=== PATIENT | female | born 2000 | race Caucasian/White ===

== ENCOUNTER 2023-02-01 06:47 | Day surgery (SDC) | payer OTHER ==
[~2023-02-01] VITALS: Ht 162.6 cm; Wt 64.0 kg
[2023-02-01] MEDS ORDERED: LIDOCAINE/EPI MPF 1%1:200000 30 ML VIAL INJ ONE (07:26)
[2023-02-01] MEDS ORDERED: ceFAZolin 2,000 MG VIAL ONE (07:28)
[2023-02-01] MEDS ORDERED: SEVOFLURANE 250 ML BTL INH ONE (07:33)
[2023-02-01] MEDS ORDERED: MIDAZOLAM 2 MG/2 ML VIAL ONE (07:37)
[2023-02-01] MEDS ORDERED: fentaNYL citrate 0.05 MG/ML VIAL ONE (07:37)
[2023-02-01] MEDS ORDERED: PROPOFOL 200 MG/20 ML VIAL IV ONE (08:00)
[2023-02-01] MEDS ORDERED: METOCLOPRAMIDE 10 MG/2 ML INJ VIAL ONE (08:00)
[2023-02-01] MEDS ORDERED: ONDANSETRON 4 MG/2 ML VIAL ONE (08:00)
[2023-02-01] MEDS ORDERED: DEXAMETHASONE 4 MG/ML VIAL ONE (08:01)
[2023-02-01] MEDS ORDERED: LIDOCAINE MPF 2% 100 MG/5 ML VIAL INJ ONE (08:18)
[2023-02-01] MEDS ORDERED: KETOROLAC 30 MG/ML VIAL ONE (08:18)
[2023-02-01] MEDS ORDERED: KETOROLAC 30 MG/ML VIAL IVP ONE (09:05)
[2023-02-01] MEDS ORDERED: ONDANSETRON 4 MG/5 ML ORASYR GT PRN (09:05)
[2023-02-01] MEDS ORDERED: HYDROmorphone 1 MG/ML AMP IVP PRN (09:05)
== END 2023-02-01 11:02 | disposition home or self-care (01) ==
LOC: MMU 06:47 → MDS 06:47
PROVIDERS: ATTEND Obstetrics & Gynecology
DX: N90.60 Unspecified hypertrophy of vulva (principal); Z98.890 Other specified postprocedural states; Z79.899 Other long term (current) drug therapy
CPT/HCPCS: 56620; J1100; J1885; J2001; J2250; J2405; J2704; J2765; J3010; J7120; 88305; J0690; J7060

== ENCOUNTER 2023-02-07 14:52 | Inpatient (IN) | payer OTHER ==
[~2023-02-07] VITALS: Ht 162.6 cm; Wt 61.2 kg
[2023-02-07 15:46] VITALS: BP 109/73; PULSE 84; RESP 20; TEMP 98; O2SAT 98
[2023-02-07 16:25] LABS: BASOPHILS # (AUTO) 0.1 K/uL (0.00-0.22); BASOPHILS % (AUTO) 1.5 % (0.0-2.0); EOSINOPHILS # (AUTO) 0.1 K/uL (0-0.4); EOSINOPHILS % (AUTO) 1.7 % (0.0-4.0); HEMATOCRIT 44.3 % (36-48); HEMOGLOBIN 14.9 g/dL (12.0-16.0); LYMPHOCYTES # (AUTO) 1.6 K/uL (2.5-16.5); LYMPHOCYTES % (AUTO) 26.7 % (20.5-51.1); MEAN CORPUSCULAR HEMOGLOBIN 30 pg (27-31); MEAN CORPUSCULAR HGB CONC 34 g/dL (33-37); MEAN CORPUSCULAR VOLUME 88.4 fL (80-94); MONOCYTES # (AUTO) 0.5 K/uL (0.8-1.0); MONOCYTES % (AUTO) 7.8 % (1.7-9.3); NEUTROPHILS # (AUTO) 3.7 K/uL (1.8-7.7); NEUTROPHILS % (AUTO) 62.3 % (42.2-75.2); PLATELET COUNT (AUTO) 274 K/uL (140-450); RED BLOOD CELL COUNT(AUTO) 5.01 MIL/uL (4.20-5.40); RED CELL DISTRIBUTION WIDTH 13.2 % (11.6-13.7); WHITE BLOOD COUNT (AUTO) 5.9 K/uL (4.5-11.0)
[2023-02-07 16:44] LABS: ALBUMIN 4.2 g/dL (3.4-5.0); ANION GAP 13.4 (8-16); CARBON DIOXIDE 25.7 mmol/L (21-32); CREATININE 0.8 mg/dL (0.6-1.3); POTASSIUM 4.1 mmol/L (3.5-5.1); TOTAL BILIRUBIN 0.4 mg/dL (0.0-1.0)
[2023-02-07] MEDS ORDERED: cefTRIAXone 1,000 MG VIAL ONE (17:39)
[2023-02-07 17:50] LABS: APPEARANCE,URINE CLEAR (CLEAR); BILIRUBIN,URINE NEGATIVE (NEGATIVE); BLOOD, URINE NEGATIVE (NEGATIVE); COLOR,URINE YELLOW (YELLOW); LEUKOCYTE ESTERASE ,URINE NEGATIVE (NEGATIVE); NITRITE, URINE NEGATIVE (NEGATIVE); UGLUCOSE NEGATIVE (NEGATIVE)
[2023-02-07] MEDS ORDERED: ONDANSETRON 4 MG/2 ML VIAL IVP PRN (18:25)
[2023-02-07] MEDS ORDERED: HYDROcodone/APAP 5/325 MG 1 TAB TAB PO PRN (18:25)
[2023-02-07] MEDS ORDERED: VANCOMYCIN PER PHARMACY MC PRN (18:25)
[2023-02-07] MEDS ORDERED: MORPHINE SULFATE 4 MG/ML SYR IVP PRN (18:25)
[2023-02-07] MEDS ORDERED: POTASSIUM CHLORIDE 10 MEQ TABER PO PRN (18:25)
[2023-02-07] MEDS ORDERED: ACETAMINOPHEN 325 MG TAB PO PRN (18:25)
[2023-02-07] MEDS ORDERED: MAGNESIUM OXIDE 400 MG TAB PO PRN (18:25)
--- NOTE | 2023-02-07 19:41 | NUR ---
AMBULAOTES WITH STEADY GAIT. AWARE OF NPO STATUS WITH ADMISSION TO HOSPITAL
[2023-02-07] MEDS: DEXT 5% /NACL 0.9% 1,000 ML IV SCH (20:00)
[2023-02-07] MEDS ORDERED: VANCOMYCIN 1,000 MG in DEXTROSE 5% 250 ML IV SCH (20:00)
--- NOTE | 2023-02-07 20:36 | NUR ---
Report called to [facility] for transfer of care.
[2023-02-07 21:30] VITALS: PULSE 68; RESP 18; O2SAT 100
--- NOTE | 2023-02-07 21:30 | NUR ---
PT WAS ADMITTED TO [facility] DEPART FROM ER WITH DIAGNOSIS OF INFECTED LABIA. PT IS AOX4, AMBULATORY, ABLE TO VERBALIZE NEEDS AND ABLE TO FOLLOW COMMANDS. PT IS ON ROOM AIR AND ON NPO DIET. PT HAS IV ON LEFT AC GAUGE 22 RUNNING WITH D5NS AT 80ML/HR. PT HAS SURGICAL WOUND ON LABIA. PT WAS ORIENTED TO ROOM/HOSPITAL, BED BUTTON AND CALL LIGHT. ALL SAFETY MEASURES IMPLEMENTED. BED IN LOW POSITION, BED WHEELS ON LOCK AND CALL LIGHT WITHIN REACH.
[2023-02-07] MEDS ORDERED: VANCOMYCIN 1,000 MG VIAL ONE (21:59)
--- NOTE | 2023-02-07 22:03 | NUR ---
ALL SCHEDULED AND PRESCRIBED MEDICATION WAS GIVEN TO PT PER MD ORDER. ALL SAFETY MEASURES IMPLEMENTED. BED IN LOW POSITION, BED WHEELS ON LOCK AND CALL LIGHT WITHIN REACH.
--- NOTE | 2023-02-08 | NUR ---
PT IS ON SLEEP. CHEST RISE AND FALL SYMMETRICALLY NOTED. RESPIRATION IS EVEN AND UNLABORED. ALL SAFETY MEASURES IMPLEMENTED. BED IN LOW POSITION, BED WHEELS ON LOCK AND CALL LIGHT WITHIN REACH.
--- NOTE | 2023-02-08 02:00 | NUR ---
CHECKED THE PT, STILL ON SLEEP. CHEST RISE AND FALL SYMMETRICALLY NOTED. RESPIRATION IS EVEN AND UNLABORED. ALL SAFETY MEASURES IMPLEMENTED. BED IN LOW POSITION, BED WHEELS ON LOCK AND CALL LIGHT WITHIN REACH.
[2023-02-08 04:00] VITALS: BP 95/58; PULSE 62; RESP 18; TEMP 97.5; O2SAT 98
[2023-02-08] MEDS: DEXT 5% /NACL 0.9% 1,000 ML IV SCH ×2 (06:55→20:16)
[2023-02-08 06:56] LABS: BASOPHILS # (AUTO) 0.1 K/uL (0.00-0.22); BASOPHILS % (AUTO) 1.8 % (0.0-2.0); EOSINOPHILS # (AUTO) 0.2 K/uL (0-0.4); EOSINOPHILS % (AUTO) 2.4 % (0.0-4.0); HEMATOCRIT 43.2 % (36-48); HEMOGLOBIN 14.6 g/dL (12.0-16.0); LYMPHOCYTES # (AUTO) 1.6 K/uL (2.5-16.5); LYMPHOCYTES % (AUTO) 26.4 % (20.5-51.1); MEAN CORPUSCULAR HEMOGLOBIN 30 pg (27-31); MEAN CORPUSCULAR HGB CONC 34 g/dL (33-37); MEAN CORPUSCULAR VOLUME 88.3 fL (80-94); MONOCYTES # (AUTO) 0.6 K/uL (0.8-1.0); MONOCYTES % (AUTO) 9.7 % (1.7-9.3); NEUTROPHILS # (AUTO) 3.7 K/uL (1.8-7.7); NEUTROPHILS % (AUTO) 59.7 % (42.2-75.2); PLATELET COUNT (AUTO) 265 K/uL (140-450); RED CELL DISTRIBUTION WIDTH 13.1 % (11.6-13.7); WHITE BLOOD COUNT (AUTO) 6.1 K/uL (4.5-11.0)
[2023-02-08 06:58] LABS: ANION GAP 10.4 (8-16); CARBON DIOXIDE 28.8 mmol/L (21-32); CREATININE 0.8 mg/dL (0.6-1.3); POTASSIUM 4.2 mmol/L (3.5-5.1)
--- NOTE | 2023-02-08 07:28 | NUR ---
PT IS STABLE. ENDORSED PT TO MORNING SHIFT NURSE FOR CONTINUITY OF CARE.
[2023-02-08 08:00] VITALS: BP 104/66; PULSE 72; RESP 17; TEMP 98.2; O2SAT 100
--- NOTE | 2023-02-08 09:00 | NUR ---
PATIENT HAS BEEN SCREENED AND CATEGORIZED LOW NUTRITION RISK. PATIENT WILL BE SEEN WITHIN 7 DAYS OF ADMISSION. 02/14/[address]
[2023-02-08] MEDS: VANCOMYCIN 1,000 MG in DEXTROSE 5% 250 ML IV SCH ×2 (09:08→20:20)
[2023-02-08] MEDS: LORazepam 1 MG TAB PO PRN ×2 (09:09→17:48)
[2023-02-08] MEDS ORDERED: MEPERIDINE 25 MG/ML SYR IVP PRN (10:50)
[2023-02-08] MEDS ORDERED: LACTATED RINGERS 1,000 ML IV SCH (10:50)
[2023-02-08] MEDS ORDERED: HYDROmorphone 1 MG/ML AMP IVP PRN (10:50)
[2023-02-08] MEDS ORDERED: ONDANSETRON 4 MG/2 ML VIAL IVP PRN (10:50)
[2023-02-08] MEDS ORDERED: diphenhydrAMINE 50 MG/ML VIAL IVP PRN (10:50)
[2023-02-08] MEDS ORDERED: fentaNYL citrate 0.05 MG/ML VIAL ONE (10:51)
[2023-02-08] MEDS ORDERED: PROPOFOL 200 MG/20 ML VIAL IV ONE ×2 (10:53→11:00)
[2023-02-08] MEDS ORDERED: SEVOFLURANE 250 ML BTL INH ONE (11:00)
[2023-02-08] MEDS ORDERED: ONDANSETRON 4 MG/2 ML VIAL ONE ×2 (11:00→11:48)
[2023-02-08] MEDS ORDERED: fentaNYL citrate 0.05 MG/ML - 50mL vial IV ONE (11:00)
[2023-02-08] MEDS ORDERED: DEXAMETHASONE 4 MG/ML VIAL ONE ×2 (11:00→11:47)
--- NOTE | 2023-02-08 11:15 | NUR ---
OR NURSE COME AND PUBLICITY DIRECTOR PATIENT FOR LABIOPLASTY(?) PROCEDURE. DR. MEDRANO COME EARLY AND CHECK HOW MANY DOSE IV ANTIBIOTIC (1 DOSE VANCOMYCIN & 1 DOSE ROCEPHIN GIVE IN ER), AT THE TIME OF OR NURSE PUBLICITY DIRECTOR PATIENT 2ND DOSE VANCOMYCIN COMPLETE INFUSING IN MST. WILL CONTINUE TO MONITOR Addendum: 02/08/23 at 1334 by Flor Weaver RN PATIENT RETURN FROM OR AFTER R. LABIA REPAIR PROCEDURE. PER OR NURSE THAT PATIENT TOLERATE PROCEDURE, DEMEROL GIVE IN OR FOR SHIVERING. VITAL WITHIN PATIENT'S BASELINE. PATIENT WANDER SHE WILL GO HOME TODAY, NURSE INFORM PATIENT IS NO LONG OBSERVATION STATUS WHICH MEANS SHE WILL STAY IN HOSPITAL TONIGHT. WILL CONTINUE TO MONITOR
[2023-02-08] MEDS ORDERED: LIDOCAINE/EPI MPF 1%1:200000 30 ML VIAL INJ ONE (11:18)
[2023-02-08 16:00] VITALS: BP 116/60; PULSE 104; RESP 17; TEMP 97.9; O2SAT 98
--- NOTE | 2023-02-08 19:10 | NUR ---
RECEIVED PT FROM MORNING SHIFT NURSE. PT IS AOX4, AMBULATORY, ABLE TO VERBALIZE NEEDS AND ABLE TO FOLLOW COMMANDS. PT IS ON ROOM AIR AND ON REGULAR DIET. PT HAS IV ON LEFT AC GAUGE 22 RUNNING WITH D5NS AT 80ML/HR. PT HAS SURGICAL WOUND ON LABIA. NO COMPLAIN OF PAIN AND NO SS/S OF RESPIRATORY DISTRESS NOTED. ALL SAFETY MEASURES IMPLEMENTED. BED IN LOW POSITION, BED WHEELS ON LOCK AND CALL LIGHT WITHIN REACH.
[2023-02-08 20:00] VITALS: PULSE 60; RESP 20; TEMP 98; O2SAT 100
--- NOTE | 2023-02-08 22:00 | NUR ---
PT WAS GIVING WARM BLANKET PER PT REQUEST. NO COMPLAIN OF PAIN. NO S/S OF RESPIRATORY DISTRESS NOTED. ALL SAFETY MEASURES IMPLEMENTED. BED IN LOW POSITION, BED WHEELS ON LOCK AND CALL LIGHT WITHIN REACH.
[2023-02-09] VITALS: BP 96/58; PULSE 107; RESP 18; TEMP 98; O2SAT 100
--- NOTE | 2023-02-09 07:22 | NUR ---
PT IS STABLE. ENDORSED PT TO MORNING SHIFT NURSE FOR CONTINUITY OF CARE.
[2023-02-09 08:00] VITALS: BP 103/54; PULSE 76; RESP 18; TEMP 97.7; O2SAT 98
--- NOTE | 2023-02-09 08:00 | NUR ---
ASSUMED CARE OVER PT. RECEIVED REPORT FROM DAY SHIFT NURSE, SASCHA. PT IS ALERT AND ORIENTED X4, ABLE TO VERBALIZE NEEDS, ABLE TO FOLLOW COMMANDS. RESPIRATIONS ARE EVEN AND UNLABORED, ON ROOM AIR. NO SIGNS OF DISTRESS NOTED. ABD IS NONTENDER, NONDISTENDED WITH BOWEL SOUNDS PRESENT IN ALL QUADRANTS. PT IS ON REGULAR DIET, TOLERATING WELL. PT IS CONTINENT OF BOWEL AND BLADDER, ABLE TO AMBULATE TO REST ROOM INDEPENDENTLY. PT HAS FULL ROM TO UPPER AND LOWER EXTREMITIES. SKIN IS WARM, DRY, AND INTACT. PT HAS SX WOULD TO LABIA, NO COMPLAINTS OF PAIN OR DISCOMFORT. CALL LIGHT WITHIN REACH. ALL SAFETY MEASURES IN PLACE.
[2023-02-09 08:08] LABS: BASOPHILS % (AUTO) 0.6 % (0.0-2.0); EOSINOPHILS # (AUTO) 0.1 K/uL (0-0.4); HEMOGLOBIN 13.3 g/dL (12.0-16.0); LYMPHOCYTES # (AUTO) 2.5 K/uL (2.5-16.5); LYMPHOCYTES % (AUTO) 31.5 % (20.5-51.1); MEAN CORPUSCULAR HEMOGLOBIN 30 pg (27-31); MEAN CORPUSCULAR HGB CONC 34 g/dL (33-37); MEAN CORPUSCULAR VOLUME 88.6 fL (80-94); MONOCYTES # (AUTO) 0.7 K/uL (0.8-1.0); MONOCYTES % (AUTO) 8.3 % (1.7-9.3); NEUTROPHILS # (AUTO) 4.7 K/uL (1.8-7.7); NEUTROPHILS % (AUTO) 58.6 % (42.2-75.2); PLATELET COUNT (AUTO) 245 K/uL (140-450); RED CELL DISTRIBUTION WIDTH 12.8 % (11.6-13.7); WHITE BLOOD COUNT (AUTO) 8.1 K/uL (4.5-11.0)
[2023-02-09 08:24] LABS: ANION GAP 11.3 (8-16); CARBON DIOXIDE 24.7 mmol/L (21-32); CREATININE 0.7 mg/dL (0.6-1.3)
[2023-02-09] MEDS: DEXT 5% /NACL 0.9% 1,000 ML IV SCH (08:27)
[2023-02-09] MEDS: LORazepam 1 MG TAB PO PRN (08:28)
--- NOTE | 2023-02-09 08:32 | NUR ---
ADMINISTERED SCHEDULED MEDICATIONS. EDUCATED PT ON MEDS ADMINISTERED. PT VERBALIZED UNDERSTANDING. PT COMPLAINING OF SOME ANXIETY, PRN MEDICATION ADMINISTERED. PT TOLERATED WELL.
[2023-02-09] MEDS: VANCOMYCIN 1,000 MG in DEXTROSE 5% 250 ML IV SCH (08:43)
--- NOTE | 2023-02-09 09:32 | NUR ---
WENT TO RE-ASSESS PT ANXIETY LEVEL. PT IN BED ON HER PHONE. STATES SHE FEELS BETTER.
--- NOTE | 2023-02-09 10:13 | NUR ---
WOUND CONSULT NOT DONE, LABIA DRESSING DCI. PT. WITH S/P LABIOPLASTY (02/01/23) WITH WOUND DEHISCENCE PENDING CONSULTATION WITH DR. MEDRANO AND PROCEDURE FOR REPAIR.
--- NOTE | 2023-02-09 10:20 | NUR ---
DC [age] YRS OLD FEMALE PATIENT WAS ADMITTED FROM HOME WITH A DX OF INFECTED LABIA. PATIENT HAS A HX OF ANXIETY AND SURGICAL HX OF RHINOPLASTY . DR MEDRANO PERFORMED REPAIR OF RT LABIA. ADMINISTERED IVF, IV ABX ROCEPHIN. DC PLAN TO GO HOME WHEN STABLE. CM TO FOLLOW
[2023-02-09 10:36] VITALS: PULSE 76; RESP 18; O2SAT 100
--- NOTE | 2023-02-09 11:35 | NUR ---
PT CALLED NURSE, STATES SHE ACCIDENTALLY PULLED IV WHILE TURNING IN BED. NEW IV PLACED. RFA 24G. PT TOLERATED WELL.
--- NOTE | 2023-02-09 12:10 | NUR ---
Oil Field Equipment Mechanic Supervisor COAL FEEDER OPERATOR conducted a discharge planning assessment. Pt. was agreeable to this interview. The face sheet demographics have been confirmed. Pt. resides in a condo with her family. COAL FEEDER OPERATOR educated pt on the DPOA and provided her with a form to fill out as she wishes. Pt. resides in a home with family. Pt. stated she suffers from anxiety, takes trazodone and another med, she could not recall. Pts. Psychiatrist prescribes the medication, but pt. knows she needs to follow up in order to leonardo her refill. Pt. stated she has been dealing with her surgery and now this hospitalization. While at this hospital, pt. is given anti-anxiety meds. Pt. stated they have been effective. Pt. works at [employer] and will ask for a DrMadelin note. COAL FEEDER OPERATOR stated the note will be generic to protect her privacy as pt. stated she does not want anyone to know the reason she was in the hospital. COAL FEEDER OPERATOR reassured pt. and stated the HIPAA. Pt. will return home once discharged. COAL FEEDER OPERATOR will remain available as needed.
--- NOTE | 2023-02-09 14:32 | NUR ---
WENT TO DO ROUNDS ON PT. PT IN BED RESTING AT THIS TIME. RESPIRATIONS ARE EVEN AND UNLABORED. NO SIGNS OF DISTRESS NOTED.
[2023-02-09 16:00] VITALS: BP 102/55; PULSE 89; RESP 18; TEMP 98.2; O2SAT 100
[2023-02-09] MEDS ORDERED: CEPH500C16 PO (16:33)
--- NOTE | 2023-02-09 16:45 | NUR ---
PT ASKING IF SHE WILL BE DISCHARGING HOME TODAY. UPDATED PT ON POC.
[2023-02-09 17:32] VITALS: BP 102/55; PULSE 89; RESP 18; TEMP 98.2
--- NOTE | 2023-02-09 18:17 | NUR ---
WENT OVER DISCHARGE PAPERWORK WITH PT. ANSWERED ALL QUESTIONS. PT SIGNED ALL PAPERWORK. REMOVED IV. IV CATHETER INTACT. PT AWAITING MOM TO PICK HER UP.
--- NOTE | 2023-02-09 18:39 | NUR ---
PT DISCHARGED HOME WITH FAMILY. ALL BELONGINGS TAKEN UPON DISCHARGE.
[2023-02-09] MEDS ORDERED: VANCOMYCIN 1.25GM PREMIX 250 ML IV SCH (21:00)
--- NOTE | 2023-02-11 12:12 | NUR ---
CALLED DR RAMON HERNANDEZ[facility]S OFFICE LOCATED AT [address] [place] [id number]. SPOKE WITH BENOIT WHO WAS ABLE TO HELP ME SCHEDULE [facility] FOLLOW UP APPOINTMENT FOR 02/16/2023 AT 1400. WENT TO BEDSIDE TO INFORM PATIENT AND MOTHER ABOUT THE ABOVE INFORMATION WELL GAVE PATIENT AN APPOINTMENT SLIP WITH THE ABOVE INFORMATION ON IT.
== END 2023-02-09 18:40 | disposition home or self-care (01) | DRG 721 ==
LOC: MED 14:52 → OBSVTOIN 18:27 → MTU 18:27
PROVIDERS: ADMIT Student in an Organized Health Care Education/Training Program; ATTEND Student in an Organized Health Care Education/Training Program
PROC: 0UQM0ZZ Repair Vulva, Open Approach (ICD-10-PCS; principal; 2023-02-08 09:00)
DX: T81.41XA Infection following a procedure, superficial incisional surgical site, initial encounter (principal); T81.31XA Disruption of external operation (surgical) wound, not elsewhere classified, initial encounter; N76.2 Acute vulvitis; F41.9 Anxiety disorder, unspecified; Y83.8 Other surgical procedures as the cause of abnormal reaction of the patient, or of later complication, without mention of misadventure at the time of the procedure; Y92.89 Other specified places as the place of occurrence of the external cause
CPT/HCPCS: 36415; 80048; 80053; 80202; 81003; 83605; 85025; 87040; 87081; 96365; 99285; J0696; J1100; J1644; J2001; J2175; J2270; J2405; J2704; J3010; J3370; J3372; J7030; J7060